=== PATIENT | female | born 1995 | race American Indian/Alaskan Native ===

== ENCOUNTER 2017-04-17 10:30 | Emergency (ER) | payer OTHER ==
[2017-04-17 10:53] VITALS: BP 116/71
[2017-04-17 11:19] LABS: HCG Qualitative,Urine Negative (Negative)
[2017-04-17 11:21] LABS: Bilirubin,Urine NEG (Negative); Blood,Urine NEG (Negative); Color,Urine Yellow (Yellow); Mucus,Urine 1+ /HPF; Protein,Urine <15 mg/dL mg/dL (Negative); Urobilinogen,Urine < 2.0 mg/dL (<2.0); WBC,Urine < 1.0 /HPF (0.0-6.0)
[2017-04-17] MEDS ORDERED: MOTRIN PO ONE (11:57)
--- NOTE | 2017-04-17 12:01 | Emergency Department Report ---
ED ENT HPI - General Chief complaint: Sore Throat Stated complaint: SORE THROAT/ABD PAIN Time Seen by Provider: 04/17/17 11:52 Source: patient Mode of arrival: Ambulatory Limitations: No Limitations - History of Present Illness Initial comments: 22-year-old -[place] female comes into the emergency room complaining of sore throat abdominal pain headache nasal congestion 2 days. Patient reports she has vomited about 3-4 times yesterday. She reports sinus drainage sinus congestion. She is tried sinus medicine yesterday. She's tried no pain medication at all. She has no past medical history, currently takes no medications on a daily basis, and no known drug allergies. MD complaint: sore throat -: days(s) (2) Location: throat Consistency: intermittent Improves with: none Worsens with: none - Related Data Previous Rx's Medication Instructions Recorded Last Taken Type Dexchlorpheniram/Phenylephrine 1 each PO Q6H #20 tab 04/17/17 Unknown Rx [Rymed Tablet] Ibuprofen 400 mg PO Q8H #15 tablet 04/17/17 Unknown Rx Allergies Allergy/AdvReac Type Severity Reaction Status Date / Time No Known Allergies Allergy Unverified 04/17/17 10:49 ED Dental HPI - General Chief complaint: Sore Throat Stated complaint: SORE THROAT/ABD PAIN Time Seen by Provider: 04/17/17 11:52 Source: patient Mode of arrival: Ambulatory Limitations: No Limitations - Related Data Previous Rx's Medication Instructions Recorded Last Taken Type Dexchlorpheniram/Phenylephrine 1 each PO Q6H #20 tab 04/17/17 Unknown Rx [Rymed Tablet] Ibuprofen 400 mg PO Q8H #15 tablet 04/17/17 Unknown Rx Allergies Allergy/AdvReac Type Severity Reaction Status Date / Time No Known Allergies Allergy Unverified 04/17/17 10:49 ED Review of Systems ROS: Stated complaint: SORE THROAT/ABD PAIN Other details as noted in HPI Constitutional: denies: chills, fever Eyes: denies: eye pain, eye discharge, vision change ENT: throat pain, congestion (nasal). denies: ear pain Respiratory: cough Cardiovascular: denies: chest pain, palpitations Endocrine: no symptoms reported Gastrointestinal: abdominal pain, vomiting. denies: nausea Genitourinary: denies: urgency, dysuria, discharge Musculoskeletal: denies: back pain, joint swelling, arthralgia Skin: denies: rash, lesions Neurological: denies: headache, weakness, paresthesias Psychiatric: denies: anxiety, depression Hematological/Lymphatic: denies: easy bleeding, easy bruising ED Past Medical Hx - Past Medical History Previous Medical History?: No - Surgical History Past Surgical History?: No - Social History Smoking Status: Never Smoker Substance Use Type: Non Opiate Pain, Other - Medications Home Medications: Home Medications Medication Instructions Recorded Confirmed Last Taken Type Dexchlorpheniram/Phenylephrine 1 each PO Q6H #20 tab 04/17/17 Unknown Rx [Rymed Tablet] Ibuprofen 400 mg PO Q8H #15 tablet 04/17/17 Unknown Rx ED Physical Exam - General Limitations: No Limitations General appearance: alert, in no apparent distress - Head Head exam: Present: atraumatic, normocephalic - Eye Eye exam: Present: normal appearance - ENT ENT exam: Present: mucous membranes moist - Expanded ENT Exam Expanded Throat exam: Positive: tonsillomegaly. Negative: tonsillar erythema, tonsillar exudate - Neck Neck exam: Present: normal inspection - Respiratory Respiratory exam: Present: normal lung sounds bilaterally. Absent: respiratory distress - Cardiovascular Cardiovascular Exam: Present: regular rate, normal rhythm. Absent: systolic murmur, diastolic murmur, rubs, gallop - GI/Abdominal GI/Abdominal exam: Present: soft, normal bowel sounds - Extremities Exam Extremities exam: Present: normal inspection - Back Exam Back exam: Present: normal inspection - Neurological Exam Neurological exam: Present: alert, oriented X3 - Psychiatric Psychiatric exam: Present: normal affect, normal mood - Skin Skin exam: Present: warm, dry, intact, normal color. Absent: rash ED Course Vital Signs 04/17/17 10:49 Temperature 99 F Pulse Rate 80 Respiratory 20 Rate Blood Pressure 116/71 O2 Sat by Pulse 97 Oximetry ED Medical Decision Making - Medical Decision Making Patient and evaluated with this provider fast track. Ibuprofen 400 mg ordered, rapid strep sent off urinalysis is completed by mouth trial is started. Critical care attestation.: If time is entered above; I have spent that time in minutes in the direct care of this critically ill patient, excluding procedure time. ED Disposition Clinical Impression: Viral syndrome Disposition: DC-01 TO HOME OR SELFCARE Is pt being admited?: No Does the pt Need Aspirin: No Condition: Stable Instructions: Viral Syndrome (ED) Additional Instructions: Take prescription as prescribed. Follow up with your PCP if symptoms get worst. Prescriptions: Dexchlorpheniram/Phenylephrine [Rymed Tablet] 1 each PO Q6H #20 tab Ibuprofen 400 mg PO Q8H #15 tablet Referrals: PRIMARY CARE, [Primary Care Provider] - 3-5 Days Forms: Work/School Release Form(ED), Accompanied Note
== END 2017-04-17 13:00 | disposition home or self-care (01) ==
LOC: ED 10:30
DX: B34.9 Viral infection, unspecified (principal)
CPT/HCPCS: 81001; 81025; 87116; 87430; 99283

== ENCOUNTER 2018-11-10 09:23 | Emergency (ER) | payer MEDICAID ==
[2018-11-10 09:29] VITALS: BP 138/68
[2018-11-10] MEDS ORDERED: SODIUM CHLORIDE 0.9% 1000 ML 1,000 ML IV ONE (10:11)
[2018-11-10] MEDS ORDERED: ACETAMINOPHEN 325 MG TAB PO ONE (10:14)
--- NOTE | 2018-11-10 10:26 | Emergency Department Report ---
ED Abdominal Pain HPI - General Chief Complaint: Abdominal Pain Stated Complaint: ABD PAIN/8WKS Time Seen by Provider: 11/10/18 10:03 Source: patient Mode of arrival: Ambulatory Limitations: No Limitations - History of Present Illness Initial Comments: Patient complains of right lower quadrant and pelvic pain which started when she woke up this morning. She denies any nausea, vomiting, diarrhea. She denies any chest pain, shortness of breath, vaginal bleeding or discharge. She denies any history of sexually transmitted and she also denies any past medical history MD Complaint: abdominal pain -: Sudden, This morning Location: RLQ Radiation: suprapubic Migration to: no migration Severity: severe Severity scale (0 -10): 7 Quality: sharp Consistency: constant Improves With: nothing Worsens With: nothing Associated Symptoms: denies other symptoms - Related Data LMP Date: 08/20/18 LMP (females 10-50): Previous Rx's Medication Instructions Recorded Last Taken Type Dexchlorpheniram/Phenylephrine 1 each PO Q6H #20 tab 04/17/17 Unknown Rx [Rymed Tablet] Ibuprofen 400 mg PO Q8H #15 tablet 04/17/17 Unknown Rx Acetaminophen [Tylenol] 650 mg PO Q8HR PRN #25 capsule 11/10/18 Unknown Rx Allergies Allergy/AdvReac Type Severity Reaction Status Date / Time No Known Allergies Allergy Unverified 04/17/17 10:49 ED Review of Systems ROS: Stated complaint: ABD PAIN/8WKS Other details as noted in HPI Comment: All other systems reviewed and negative Constitutional: denies: chills, fever Eyes: denies: eye pain, eye discharge, vision change ENT: denies: ear pain, throat pain Respiratory: denies: cough, shortness of breath, wheezing Cardiovascular: denies: chest pain, palpitations Endocrine: no symptoms reported Gastrointestinal: abdominal pain. denies: nausea, diarrhea Genitourinary: denies: urgency, dysuria, frequency, hematuria, discharge Musculoskeletal: denies: back pain, joint swelling, arthralgia Skin: denies: rash, lesions Neurological: denies: headache, weakness, paresthesias Psychiatric: denies: anxiety, depression Hematological/Lymphatic: denies: easy bleeding, easy bruising ED Past Medical Hx - Past Medical History Previous Medical History?: No - Surgical History Past Surgical History?: No - Social History Smoking Status: Never Smoker Substance Use Type: None - Medications Home Medications: Home Medications Medication Instructions Recorded Confirmed Last Taken Type Dexchlorpheniram/Phenylephrine 1 each PO Q6H #20 tab 04/17/17 Unknown Rx [Rymed Tablet] Ibuprofen 400 mg PO Q8H #15 tablet 04/17/17 Unknown Rx Acetaminophen [Tylenol] 650 mg PO Q8HR PRN #25 capsule 11/10/18 Unknown Rx ED Physical Exam - General Limitations: No Limitations General appearance: alert, in no apparent distress - Head Head exam: Present: atraumatic, normocephalic - Eye Eye exam: Present: normal appearance, PERRL - ENT ENT exam: Present: normal orophraynx, mucous membranes moist - Neck Neck exam: Present: normal inspection, full ROM. Absent: tenderness - Respiratory Respiratory exam: Present: normal lung sounds bilaterally. Absent: respiratory distress - Cardiovascular Cardiovascular Exam: Present: regular rate, normal rhythm. Absent: systolic murmur, diastolic murmur, rubs, gallop - GI/Abdominal GI/Abdominal exam: Present: soft, tenderness (right lower quadrant tenderness to palpation.), guarding, normal bowel sounds. Absent: distended, rebound - Rectal Rectal exam: Present: deferred - External exam: Present: normal external exam. Absent: erythema, swelling, lesions, lacerations, bleeding Speculum exam: Present: normal speculum exam. Absent: erythema, vaginal discharge, cervical discharge, vaginal bleeding, foreign body, tissue, laceration Bi-manual exam: Present: adnexal tenderness (bilateral adnexal tenderness more on the right than the left.), other (Business Analytics Manager was Ms Mukund RN.). Absent: cervical motion tendernes, adnexal mass, uterine enlargement, uterine tenderness - Extremities Exam Extremities exam: Present: normal inspection, full ROM, normal capillary refill - Back Exam Back exam: Present: normal inspection, full ROM. Absent: CVA tenderness (R), CVA tenderness (L) - Neurological Exam Neurological exam: Present: alert, oriented X3, CN II-XII intact - Psychiatric Psychiatric exam: Present: normal affect, normal mood - Skin Skin exam: Present: warm, dry, intact, normal color. Absent: rash ED Course Vital Signs 11/10/18 09:28 Temperature 98.3 F Pulse Rate 76 Respiratory 18 Rate Blood Pressure 138/68 [Right] O2 Sat by Pulse 100 Oximetry - Reevaluation(s) Reevaluation #1: 11/10/18 14:40 Patient is looking better and feeling much better. She denies any abdominal pain currently. I discussed with her lab results and ultrasound results. ED Medical Decision Making - Lab Data Result diagrams: 11/10/18 10:24 11/10/18 10:24 Lab Results 11/10/18 11/10/18 11/10/18 Range/Units 10:24 10:24 10:24 WBC 3.2 L (4.5-11.0) K/mm3 RBC 4.23 (3.65-5.03) M/mm3 Hgb 12.0 (10.1-14.3) gm/dl Hct 36.3 (30.3-42.9) % MCV 86 (79-97) fl MCH 28 (28-32) pg MCHC 33 (30-34) % RDW 12.4 L (13.2-15.2) % Plt Count 203 (140-440) K/mm3 Lymph % (Auto) 34.5 (13.4-35.0) % Vance % (Auto) 9.7 H (0.0-7.3) % Eos % (Auto) 1.4 (0.0-4.3) % Baso % (Auto) 0.7 (0.0-1.8) % Lymph # 1.1 L (1.2-5.4) K/mm3 Vance # 0.3 (0.0-0.8) K/mm3 Eos # 0.0 (0.0-0.4) K/mm3 Baso # 0.0 (0.0-0.1) K/mm3 Seg Neutrophils % 53.7 (40.0-70.0) % Seg Neutrophils # 1.7 L (1.8-7.7) K/mm3 PT 12.9 (12.2-14.9) Sec. INR 1.00 (0.87-1.13) APTT 30.0 (24.2-36.6) Sec. Sodium (137-145) mmol/L Potassium (3.6-5.0) mmol/L Chloride (98-107) mmol/L Carbon Dioxide (22-30) mmol/L Anion Gap mmol/L BUN (7-17) mg/dL Creatinine (0.7-1.2) mg/dL Estimated GFR ml/min BUN/Creatinine Ratio % Glucose (65-100) mg/dL Calcium (8.4-10.2) mg/dL Total Bilirubin (0.1-1.2) mg/dL AST (5-40) units/L ALT (7-56) units/L Alkaline Phosphatase (35-129) units/L Total Protein (6.3-8.2) g/dL Albumin (3.9-5) g/dL Albumin/Globulin Ratio % Lipase 17 (13-60) units/L HCG, Quant (0-4) mIU/mL Urine Color (Yellow) Urine Turbidity (Clear) Urine pH (5.0-7.0) Ur Specific [place] (1.003-1.030) Urine Protein (Negative) mg/dL Urine Glucose (UA) (Negative) mg/dL Urine Ketones (Negative) mg/dL Urine Blood (Negative) Urine Nitrite (Negative) Urine Bilirubin (Negative) Urine Urobilinogen (<2.0) mg/dL Ur Leukocyte Esterase (Negative) Urine WBC (Auto) (0.0-6.0) /HPF Urine RBC (Auto) (0.0-6.0) /HPF U Epithel Cells (Auto) (0-13.0) /HPF Urine Bacteria (Auto) (Negative) /HPF Amorphous Crystals Urine HCG, Qual (Negative) Blood Type 11/10/18 11/10/18 11/10/18 Range/Units 10:24 10:24 10:24 WBC (4.5-11.0) K/mm3 RBC (3.65-5.03) M/mm3 Hgb (10.1-14.3) gm/dl Hct (30.3-42.9) % MCV (79-97) fl MCH (28-32) pg MCHC (30-34) % RDW (13.2-15.2) % Plt Count (140-440) K/mm3 Lymph % (Auto) (13.4-35.0) % Vance % (Auto) (0.0-7.3) % Eos % (Auto) (0.0-4.3) % Baso % (Auto) (0.0-1.8) % Lymph # (1.2-5.4) K/mm3 Vance # (0.0-0.8) K/mm3 Eos # (0.0-0.4) K/mm3 Baso # (0.0-0.1) K/mm3 Seg Neutrophils % (40.0-70.0) % Seg Neutrophils # (1.8-7.7) K/mm3 PT (12.2-14.9) Sec. INR (0.87-1.13) APTT (24.2-36.6) Sec. Sodium 135 L (137-145) mmol/L Potassium 3.7 (3.6-5.0) mmol/L Chloride 100.6 (98-107) mmol/L Carbon Dioxide 20 L (22-30) mmol/L Anion Gap 18 mmol/L BUN 4 L (7-17) mg/dL Creatinine 0.5 L (0.7-1.2) mg/dL Estimated GFR > 60 ml/min BUN/Creatinine Ratio 8 % Glucose 82 (65-100) mg/dL Calcium 9.7 (8.4-10.2) mg/dL Total Bilirubin 0.30 (0.1-1.2) mg/dL AST 17 (5-40) units/L ALT 9 (7-56) units/L Alkaline Phosphatase 51 (35-129) units/L Total Protein 7.7 (6.3-8.2) g/dL Albumin 4.3 (3.9-5) g/dL Albumin/Globulin Ratio 1.3 % Lipase (13-60) units/L HCG, Quant 98658 H (0-4) mIU/mL Urine Color (Yellow) Urine Turbidity (Clear) Urine pH (5.0-7.0) Ur Specific [place] (1.003-1.030) Urine Protein (Negative) mg/dL Urine Glucose (UA) (Negative) mg/dL Urine Ketones (Negative) mg/dL Urine Blood (Negative) Urine Nitrite (Negative) Urine Bilirubin (Negative) Urine Urobilinogen (<2.0) mg/dL Ur Leukocyte Esterase (Negative) Urine WBC (Auto) (0.0-6.0) /HPF Urine RBC (Auto) (0.0-6.0) /HPF U Epithel Cells (Auto) (0-13.0) /HPF Urine Bacteria (Auto) (Negative) /HPF Amorphous Crystals Urine HCG, Qual (Negative) Blood Type O POSITIVE 11/10/18 Range/Units Unknown WBC (4.5-11.0) K/mm3 RBC (3.65-5.03) M/mm3 Hgb (10.1-14.3) gm/dl Hct (30.3-42.9) % MCV (79-97) fl MCH (28-32) pg MCHC (30-34) % RDW (13.2-15.2) % Plt Count (140-440) K/mm3 Lymph % (Auto) (13.4-35.0) % Vance % (Auto) (0.0-7.3) % Eos % (Auto) (0.0-4.3) % Baso % (Auto) (0.0-1.8) % Lymph # (1.2-5.4) K/mm3 Vance # (0.0-0.8) K/mm3 Eos # (0.0-0.4) K/mm3 Baso # (0.0-0.1) K/mm3 Seg Neutrophils % (40.0-70.0) % Seg Neutrophils # (1.8-7.7) K/mm3 PT (12.2-14.9) Sec. INR (0.87-1.13) APTT (24.2-36.6) Sec. Sodium (137-145) mmol/L Potassium (3.6-5.0) mmol/L Chloride (98-107) mmol/L Carbon Dioxide (22-30) mmol/L Anion Gap mmol/L BUN (7-17) mg/dL Creatinine (0.7-1.2) mg/dL Estimated GFR ml/min BUN/Creatinine Ratio % Glucose (65-100) mg/dL Calcium (8.4-10.2) mg/dL Total Bilirubin (0.1-1.2) mg/dL AST (5-40) units/L ALT (7-56) units/L Alkaline Phosphatase (35-129) units/L Total Protein (6.3-8.2) g/dL Albumin (3.9-5) g/dL Albumin/Globulin Ratio % Lipase (13-60) units/L HCG, Quant (0-4) mIU/mL Urine Color Yellow (Yellow) Urine Turbidity Cloudy (Clear) Urine pH 8.0 H (5.0-7.0) Ur Specific [place] 1.010 (1.003-1.030) Urine Protein <15 mg/dl (Negative) mg/dL Urine Glucose (UA) Neg (Negative) mg/dL Urine Ketones Neg (Negative) mg/dL Urine Blood Neg (Negative) Urine Nitrite Neg (Negative) Urine Bilirubin Neg (Negative) Urine Urobilinogen < 2.0 (<2.0) mg/dL Ur Leukocyte Esterase Neg (Negative) Urine WBC (Auto) 2.0 (0.0-6.0) /HPF Urine RBC (Auto) 1.0 (0.0-6.0) /HPF U Epithel Cells (Auto) < 1.0 (0-13.0) /HPF Urine Bacteria (Auto) 1+ (Negative) /HPF Amorphous Crystals Few Urine HCG, Qual Positive A (Negative) Blood Type - Radiology Data Radiology results: report reviewed Transvaginal ultrasound showed early IUP. - Medical Decision Making Pelvic early . Patients labs results are unremarkable. Ultrasound showed early IUP. Will discharge home to follow up with Dr Juan Ludwig (OBGYN) tomorrow. Critical care attestation.: If time is entered above; I have spent that time in minutes in the direct care of this critically ill patient, excluding procedure time. ED Disposition Clinical Impression: Abdominal pain during intrauterine , Early stage of Disposition: TO HOME OR SELFCARE Is pt being admited?: No Does the pt Need Aspirin: No Condition: Stable Instructions: (ED), Abdominal Pain (ED) Additional Instructions: Please follow up with the archives specialist and surveyor oil well directional Dr. Juan Ludwig tomorrow morning. Return to the emergency room if your condition worsens. Prescriptions: Acetaminophen [Tylenol] 650 mg PO Q8HR PRN #25 capsule PRN Reason: Pain , Severe (7-10) Referrals: PRIMARY CARE, [Primary Care Provider] - 3-5 Days JUAN LUDWIG MD [Staff Physician] - 3-5 Days Forms: Work/School Release Form(ED) Time of Disposition: 14:47
[2018-11-10 10:52] LABS: Amorphous Crystals,Urine Few; Bacteria,Urine 1+ /HPF (Negative); Bilirubin,Urine NEG (Negative); Blood,Urine NEG (Negative); Color,Urine Yellow (Yellow); Protein,Urine <15 mg/dL mg/dL (Negative); Urobilinogen,Urine < 2.0 mg/dL (<2.0)
[2018-11-10 10:55] LABS: Basophils % (Auto) 0.7 % (0.0-1.8); Eosinophils % (Auto) 1.4 % (0.0-4.3); Hematocrit 36.3 % (30.3-42.9); Lymphocytes # (Auto) 1.1 K/mm3 (1.2-5.4); Lymphocytes % (Auto) 34.5 % (13.4-35.0); Mean Corpuscular HGB Conc 33 % (30-34); Mean Corpuscular Volume 86 fl (79-97); Monocytes # (Auto) 0.3 K/mm3 (0.0-0.8); Monocytes % (Auto) 9.7 % (0.0-7.3); Platelet Count 203 K/mm3 (140-440); Red Blood Count 4.23 M/mm3 (3.65-5.03); Red Cell Distribution Width 12.4 % (13.2-15.2)
[2018-11-10 11:00] LABS: HCG Qualitative,Urine Positive (Negative)
[2018-11-10 12:20] LABS: Alanine Aminotransferase 9 units/L (7-56); Albumin 4.3 g/dL (3.9-5); BUN/Creatinine Ratio 8; Blood Urea Nitrogen 4 mg/dL (7-17); Calcium 9.7 mg/dL (8.4-10.2); Hemolysis Index 11
--- NOTE | 2018-11-10 13:58 | Ultrasound Report ---
ULTRASOUND OBSTETRIC INDICATION / CLINICAL INFORMATION: Pelvic pain, . TECHNIQUE: Transabdominal and Transvaginal. Duplex ultrasound with spectral technique was also performed through both ovaries COMPARISON: None available. FINDINGS: GESTATIONAL SAC: Well-defined oval shape and intrauterine in location. YOLK SAC: No significant abnormality. EMBRYO/FETUS: No significant abnormality. - [place] Length = 1.93 cm = 8 weeks, 3 day(s). - Heart Rate, beats per minute (if present) = 180 ADNEXA: No significant abnormality. FREE FLUID: None. ADDITIONAL FINDINGS: Color Doppler and spectral waveforms are seen within both ovaries without eviden ce for torsion. IMPRESSION: 1. Single, living intrauterine with estimated sonographic age of 8 weeks, 3 day(s). Signer Name: Wolfgang Marley MD Signed: 11/10/2018 1:53 PM Workstation Name: [id number]
== END 2018-11-10 15:18 | disposition home or self-care (01) ==
LOC: ED 09:23
DX: O00.01 Abdominal pregnancy with intrauterine pregnancy (principal); Z3A.01 Less than 8 weeks gestation of pregnancy; Z79.899 Other long term (current) drug therapy
CPT/HCPCS: 36415; 76801; 80053; 81001; 81025; 83690; 84702; 85025; 85610; 85730; 86900; 86901; 87086; 87210; 87591; 99285; J7030

== ENCOUNTER 2019-05-31 01:19 | Outpatient (CLI) | payer MEDICAID ==
--- NOTE | 2019-05-31 03:31 | Ultrasound Report ---
LIMITED OBSTETRICAL ULTRASOUND INDICATION: Term , light vaginal bleeding COMPARISON: None TECHNIQUE: Transabdominal FINDINGS: Intrauterine is noted. Fetus is in a cephalic position. Placenta is fundal and le ft-sided and free of the internal cervical os. No obvious placental abnormalities are seen with no ev idence of abruption. Amniotic fluid volume qualitatively appears within normal limits and MIKE was mar culated at 9.5 cm which is within normal limits. cardiac activity was reported by the technolog ist at 134 bpm though I do not have a confirmatory image currently available. Dating was not performe d. Anatomic survey was not performed. IMPRESSION: No abnormalities are seen in a limited study Signer Name: Hugh Garcia MD Signed: 05/31/2019 3:27 AM Workstation Name: [id number]
[2019-05-31 03:51] LABS: Bilirubin,Urine NEG (Negative); Blood,Urine SM (Negative); Color,Urine Yellow (Yellow); Mucus,Urine FEW /HPF; Protein,Urine <15 mg/dL mg/dL (Negative); Urobilinogen,Urine < 2.0 mg/dL (<2.0)
--- NOTE | 2019-05-31 19:38 | Ultrasound Report ---
ULTRASOUND BIOPHYSICAL PROFILE INDICATION: light bleeding. COMPARISON: None available. FINDINGS: BREATHING MOVEMENT = 2 GROSS BODY MOVEMENT = 2 TONE = 2 QUALITATIVE AMNIOTIC FLUID VOLUME = 2 TOTAL BIOPHYSICAL SCORE = 09/12 AMNIOTIC FLUID INDEX (cm) = 9.5 PRESENTATION: Cephalic. HEART RATE (beats per minute): 134 IMPRESSION: 1. biophysical profile = 09/12 Signer Name: Wolfgang Marley MD Signed: 05/31/2019 7:34 PM Workstation Name: [id number]
== END 2019-05-31 04:15 | disposition home or self-care (01) ==
LOC: TRG 01:19 → APU 01:25 → TRG 04:15
PROVIDERS: ATTEND Obstetrics & Gynecology
DX: O46.8X3 Other antepartum hemorrhage, third trimester (principal); Z3A.38 38 weeks gestation of pregnancy
CPT/HCPCS: 59025; 76815; 76819; 81001

== ENCOUNTER 2019-06-01 16:16 | Outpatient (CLI) | payer MEDICAID ==
[2019-06-01 16:49] VITALS: BP 137/87
[2019-06-01] MEDS ORDERED: hydrOXYzine PAMOATE 25 MG CAP PO ONE (18:53)
[2019-06-01] MEDS ORDERED: ACETAMINOPHEN W/CODEINE 300-30 MG TAB PO ONE (18:53)
== END 2019-06-01 19:23 | disposition home or self-care (01) ==
LOC: TRG 16:16 → APU 16:20 → TRG 19:23
PROVIDERS: ATTEND Obstetrics & Gynecology
DX: O47.1 False labor at or after 37 completed weeks of gestation (principal); Z3A.37 37 weeks gestation of pregnancy
CPT/HCPCS: 59025

== ENCOUNTER 2019-09-30 18:20 | Emergency (ER) | payer MEDICAID ==
--- NOTE | 2019-09-30 19:06 | Event Note ---
ED Screening Note Date of service: 09/30/19 Time: 19:05 ED Screening Note: Heavy vaginal bleeding that started last night. no pain, had a baby 3 months ago. LMP 2 weeks ago. She reports it is heavier than her normal period flow. GENERAL APPEARANCE: Well-developed, well-nourished, no acute distress HEENT: Normocephalic and atraumatic. No scleral icterus. Pupils are equal, round, and reactive to light and accommodation. No conjunctival injection is noted. Oropharynx is clear. Mouth revealed good dentition, no lesions. Tympanic membranes are clear. NECK: Supple. Trachea is midline. No evidence of thyroid enlargement. No lymphadenopathy or tenderness. CHEST: Symmetric. Nontender to palpation. LUNGS: Breath sounds are equal and clear bilaterally. No wheezes, rhonchi, or rales. HEART: Regular rate and rhythm with normal S1 and S2. No murmurs, gallops, or rubs. BREASTS: Symmetrical. No skin or nipple retractions. No nipple discharges or masses. ABDOMEN: Soft, flat, and benign. No mass, tenderness, guarding, or rebound. No organomegaly or hernia. Bowel sounds are present. No CVA tenderness or flank mass. GENITOURINARY: Deferred RECTAL: Deferred EXTREMITIES: No cyanosis, clubbing, or edema. No lower extreme edema, negative Homans sign bilaterally NEUROLOGIC: No focal sensory or motor deficits are noted. Gait is normal. Cranial nerves II through XII are intact. Deep tendon reflexes are intact. PSYCHIATRIC: The patient is awake, alert, and oriented x3. Recent and remote memory is intact. Appropriate mood and affect. SKIN: Warm, dry, and well perfused. Good turgor. No lesions, nodules or rashes are noted. No onychomycosis. LYMPHATICS: No cervical, axillary, or groin adenopathy is noted. This initial assessment/diagnostic orders/clinical plan/treatment(s) is/are subject to change based on patients health status, clinical progression and re- assessment by fellow clinical providers in the ED. Further treatment and workup at subsequent clinical providers discretion. Patient/guardian urged not to elope from the ED as their condition may be serious if not clinically assessed and managed. Initial orders include: UA, urine hcg
[2019-09-30 19:24] LABS: HCG Qualitative,Urine Negative (Negative)
[2019-09-30 19:25] LABS: Bilirubin,Urine NEG (Negative); Blood,Urine LG (Negative); Color,Urine Yellow (Yellow); Mucus,Urine 3+ /HPF
--- NOTE | 2019-09-30 21:31 | Emergency Department Report ---
ED Female HPI - General Chief complaint: Urogenital-Female Stated complaint: BLEEDING Time Seen by Provider: 09/30/19 20:00 Source: patient Mode of arrival: Ambulatory Limitations: No Limitations - History of Present Illness Initial comments: 24-year-old [place] female sent emergency department complaining of painless bleeding for the last 1 to 2 days going through 6 pads since yesterday. States that she had a period 2 weeks ago and appears abnormally on schedule and she is never experienced any menses or vaginal bleeding between menstrual periods. Ports no fever, chills, sweats no nausea, no vomiting, no chest pain, no palpitation no hematuria no dysuria. Reports having a vaginal delivery about 3 to 4 months ago reports taking no control or hormones to exacerbate this issue MD Complaint: vaginal bleeding Improves with: none Worsens with: none Are you Now?: No Associated Symptoms: vaginal bleeding - Related Data Previous Rx's Medication Instructions Recorded Last Taken Type Dexchlorpheniram/Phenylephrine 1 each PO Q6H #20 tab 04/17/17 Unknown Rx [Rymed Tablet] Ibuprofen 400 mg PO Q8H #15 tablet 04/17/17 Unknown Rx Acetaminophen [Tylenol] 650 mg PO Q8HR PRN #25 capsule 11/10/18 Unknown Rx HYDROcodone/APAP 5-325 [[place] 1 each PO Q6HR PRN #20 tablet 06/08/19 Unknown Rx 5/325] Ibuprofen [Motrin] 800 mg PO Q8HR PRN #60 tablet 06/08/19 Unknown Rx Allergies Allergy/AdvReac Type Severity Reaction Status Date / Time No Known Allergies Allergy Unverified 06/06/19 16:53 ED Review of Systems ROS: Stated complaint: BLEEDING Other details as noted in HPI Comment: All other systems reviewed and negative ED Past Medical Hx - Past Medical History Hx Hypertension: No Hx Diabetes: No Hx Deep Vein Thrombosis: No Hx Renal Disease: No Hx Sickle Cell Disease: No Hx Seizures: No Hx Asthma: No Hx HIV: No - Social History Smoking Status: Current Every Day Smoker - Medications Home Medications: Home Medications Medication Instructions Recorded Confirmed Last Taken Type Dexchlorpheniram/Phenylephrine 1 each PO Q6H #20 tab 04/17/17 06/07/19 Unknown Rx [Rymed Tablet] Ibuprofen 400 mg PO Q8H #15 tablet 04/17/17 06/07/19 Unknown Rx Acetaminophen [Tylenol] 650 mg PO Q8HR PRN #25 capsule 11/10/18 06/07/19 Unknown Rx HYDROcodone/APAP 5-325 [[place] 1 each PO Q6HR PRN #20 tablet 06/08/19 Unknown Rx 5/325] Ibuprofen [Motrin] 800 mg PO Q8HR PRN #60 tablet 06/08/19 Unknown Rx ED Physical Exam - General Limitations: No Limitations General appearance: alert, in no apparent distress - Head Head exam: Present: atraumatic, normocephalic - Eye Eye exam: Present: normal appearance, PERRL, EOMI - ENT ENT exam: Present: mucous membranes moist - Neck Neck exam: Present: normal inspection - Respiratory Respiratory exam: Present: normal lung sounds bilaterally. Absent: respiratory distress - Cardiovascular Cardiovascular Exam: Present: regular rate, normal rhythm. Absent: systolic murmur, diastolic murmur, rubs, gallop - GI/Abdominal GI/Abdominal exam: Present: soft, normal bowel sounds. Absent: tenderness, guarding - Extremities Exam Extremities exam: Present: normal inspection - Back Exam Back exam: Present: normal inspection - Neurological Exam Neurological exam: Present: alert, oriented X3 - Psychiatric Psychiatric exam: Present: normal affect, normal mood - Skin Skin exam: Present: warm, dry, intact, normal color. Absent: rash ED Course Vital Signs 09/30/19 09/30/19 09/30/19 18:34 18:36 20:32 Temperature 97.9 F 98.7 F Pulse Rate 66 58 L Respiratory 19 14 Rate Blood Pressure 130/65 Blood Pressure 111/75 [Left] O2 Sat by Pulse 100 100 Oximetry ED Medical Decision Making - Lab Data Lab Results 09/30/19 Range/Units 18:47 Urine Color Yellow (Yellow) Urine Turbidity Clear (Clear) Urine pH 7.0 (5.0-7.0) Ur Specific [place] 1.025 (1.003-1.030) Urine Protein 30 mg/dl (Negative) mg/dL Urine Glucose (UA) Neg (Negative) mg/dL Urine Ketones Neg (Negative) mg/dL Urine Blood Lg (Negative) Urine Nitrite Neg (Negative) Ur Reducing Substances Not Reportable Urine Bilirubin Neg (Negative) Urine Ictotest Not Reportable Urine Urobilinogen 2.0 (<2.0) mg/dL Ur Leukocyte Esterase Neg (Negative) Urine WBC (Auto) 1.0 (0.0-6.0) /HPF Urine RBC (Auto) 173.0 (0.0-6.0) /HPF U Epithel Cells (Auto) 6.0 (0-13.0) /HPF Urine Mucus 3+ /HPF Urine HCG, Qual Negative (Negative) - Radiology Data Radiology results: report reviewed [facility] [address] [place] [address] Ultrasound Report Signed Patient: ABRAHAM TO MR#: [id number] : 1995 Acct:[id number] Age/Sex: 24 / F ADM Date: 09/30/19 Loc: ED Attending Dr: Ordering Physician: JOSH KUNZ Date of Service: 09/30/19 Procedure(s): US pelvic complete Accession Number(s): [id number] cc: JOSH KUNZ US pelvic complete INDICATION / CLINICAL INFORMATION: vaginal bleeding painless. COMPARISON: None available. FINDINGS: The uterus is normal in size and position. Endometrial canal measures 9 mm. The ovaries are normal in size and appearance. No free fluid or mass is seen. IMPRESSION: Negative pelvic ultrasound Signer Name: Navid Worthy MD FACR Signed: 09/30/2019 9:57 PM Workstation Name: [id number] Transcribed By: MS Dictated By: Navid Worthy MD Electronically Authenticated By: Navid Worthy MD Signed Date/Time: 09/30/192156 DD/ 55 TD/TT: - Medical Decision Making Female presents emergency department with over [2] days of episodic vaginal bleeding most likely of a nonemergent etiology. Based on the history, exa mination, the ED work-up patient's presentation not consistent with an ectopic , molar , life threatening coagulopathy, serious bacterial infection, central process or other emergency. Patient's bleeding is most likely secondary to, fibroids, or the nonemergent cause of abnormal uterine bleeding. No vaginal tears were appreciated on examination Disposition: We will discharge home with return precautions and instructions for prompt [facility] follow-up Critical care attestation.: If time is entered above; I have spent that time in minutes in the direct care of this critically ill patient, excluding procedure time. ED Disposition Clinical Impression: Menses, irregular Disposition: DC-01 TO HOME OR SELFCARE Is pt being admited?: No Does the pt Need Aspirin: No Condition: Stable Instructions: Menstruation (ED), Menorrhagia (ED) Referrals: PRIMARY CARE, [Primary Care Provider] - 3-5 Days [facility] [Provider Group] - 3-5 Days
--- NOTE | 2019-09-30 22:01 | Ultrasound Report ---
US pelvic complete INDICATION / CLINICAL INFORMATION: vaginal bleeding painless. COMPARISON: None available. FINDINGS: The uterus is normal in size and position. Endometrial canal measures 9 mm. The ovaries are normal in size and appearance. No free fluid or mass is seen. IMPRESSION: Negative pelvic ultrasound Signer Name: Navid Worthy MD FACR Signed: 09/30/2019 9:57 PM Workstation Name: [email or web address]
[2019-09-30 22:08] VITALS: BP 111/75
== END 2019-09-30 22:11 | disposition home or self-care (01) ==
LOC: ED 18:20
DX: N92.5 Other specified irregular menstruation (principal); F17.200 Nicotine dependence, unspecified, uncomplicated; Z79.899 Other long term (current) drug therapy
CPT/HCPCS: 76856; 81001; 81025

== ENCOUNTER 2020-02-02 16:56 | Emergency (ER) | payer SELFPAY ==
[2020-02-02 18:05] VITALS: BP 102/70
== END 2020-02-02 20:03 | disposition left against medical advice (07) ==
LOC: ED 16:56
DX: N39.0 Urinary tract infection, site not specified (principal); Z53.21 Procedure and treatment not carried out due to patient leaving prior to being seen by health care provider

== ENCOUNTER 2021-08-16 05:32 | Emergency (ER) | payer SELFPAY ==
--- NOTE | 2021-08-16 06:53 | Emergency Department Report ---
ED General Adult HPI - General Stated complaint: MH Time Seen by Provider: 08/16/21 06:37 - History of Present Illness Initial comments: Patient presents with the severe anxiety patient denies having any suicidal or homicidal ideation. She was given Haldol and Ativan by EMS to be brought in for an evaluation she is now on more alert and awake. Patient denies have any pain she states that she was very anxious and had a lot of stress yesterday however she feels better. - Related Data Previous Rx's Medication Instructions Recorded Last Taken Type Dexchlorpheniram/Phenylephrine 1 each PO Q6H #20 tab 04/17/17 Unknown Rx [Rymed Tablet] Ibuprofen 400 mg PO Q8H #15 tablet 04/17/17 Unknown Rx Acetaminophen [Tylenol] 650 mg PO Q8HR PRN #25 capsule 11/10/18 Unknown Rx HYDROcodone/APAP 5-325 [[place] 1 each PO Q6HR PRN #20 tablet 06/08/19 Unknown Rx 5/325] Ibuprofen [Motrin] 800 mg PO Q8HR PRN #60 tablet 06/08/19 Unknown Rx Allergies Allergy/AdvReac Type Severity Reaction Status Date / Time No Known Allergies Allergy Unverified 06/06/19 16:53 ED Review of Systems ROS: Stated complaint: MH Other details as noted in HPI Constitutional: denies: chills, fever Eyes: denies: eye pain, eye discharge, vision change ENT: denies: ear pain, throat pain Respiratory: denies: cough, shortness of breath, wheezing Cardiovascular: denies: chest pain, palpitations Endocrine: no symptoms reported Gastrointestinal: denies: abdominal pain, nausea, diarrhea Genitourinary: denies: urgency, dysuria, discharge Musculoskeletal: denies: back pain, joint swelling, arthralgia Skin: denies: rash, lesions Neurological: denies: headache, weakness, paresthesias Psychiatric: anxiety. denies: depression Hematological/Lymphatic: denies: easy bleeding, easy bruising ED Past Medical Hx - Past Medical History Hx Hypertension: No Hx Diabetes: No Hx Deep Vein Thrombosis: No Hx Renal Disease: No Hx Sickle Cell Disease: No Hx Seizures: No Hx Asthma: No Hx HIV: No - Social History Smoking Status: Current Every Day Smoker - Medications Home Medications: Home Medications Medication Instructions Recorded Confirmed Last Taken Type Dexchlorpheniram/Phenylephrine 1 each PO Q6H #20 tab 04/17/17 06/07/19 Unknown Rx [Rymed Tablet] Ibuprofen 400 mg PO Q8H #15 tablet 04/17/17 06/07/19 Unknown Rx Acetaminophen [Tylenol] 650 mg PO Q8HR PRN #25 capsule 11/10/18 06/07/19 Unknown Rx HYDROcodone/APAP 5-325 [[place] 1 each PO Q6HR PRN #20 tablet 06/08/19 Unknown Rx 5/325] Ibuprofen [Motrin] 800 mg PO Q8HR PRN #60 tablet 06/08/19 Unknown Rx ED Physical Exam - General General appearance: alert, in no apparent distress - Head Head exam: Present: atraumatic, normocephalic - Eye Eye exam: Present: normal appearance - ENT ENT exam: Present: mucous membranes moist - Neck Neck exam: Present: normal inspection - Respiratory Respiratory exam: Present: normal lung sounds bilaterally. Absent: respiratory distress - Cardiovascular Cardiovascular Exam: Present: regular rate, normal rhythm. Absent: systolic murmur, diastolic murmur, rubs, gallop - GI/Abdominal GI/Abdominal exam: Present: soft, normal bowel sounds - Extremities Exam Extremities exam: Present: normal inspection - Back Exam Back exam: Present: normal inspection - Neurological Exam Neurological exam: Present: alert, oriented X3 - Psychiatric Psychiatric exam: Present: normal affect, normal mood - Skin Skin exam: Present: warm, dry, intact, normal color. Absent: rash ED Course Vital Signs 08/16/21 08/16/21 08/16/21 06:12 06:15 06:42 Temperature 97.8 F Pulse Rate 94 H Respiratory Rate Blood Pressure 91/42 91/42 Blood Pressure [Left] O2 Sat by Pulse 97 96 96 Oximetry 08/16/21 08/16/21 08/16/21 07:15 07:31 07:45 Temperature Pulse Rate 87 88 82 Respiratory 17 20 19 Rate Blood Pressure 91/39 91/47 91/47 Blood Pressure [Left] O2 Sat by Pulse 98 97 96 Oximetry 08/16/21 08/16/21 08/16/21 08:01 08:15 08:31 Temperature Pulse Rate 88 89 89 Respiratory 17 18 19 Rate Blood Pressure 100/53 100/53 94/55 Blood Pressure [Left] O2 Sat by Pulse 99 97 97 Oximetry 08/16/21 08/16/2108/16/22 08:45 09:15 09:21 Temperature Pulse Rate 85 75 Respiratory 12 18 18 Rate Blood Pressure 94/55 103/73 Blood Pressure [Left] O2 Sat by Pulse 19 L Oximetry 08/16/21 08/16/21 08/16/21 09:31 10:01 10:15 Temperature Pulse Rate 77 73 70 Respiratory 19 17 20 Rate Blood Pressure 101/67 96/57 98/61 Blood Pressure [Left] O2 Sat by Pulse 97 97 100 Oximetry 08/16/21 08/16/21 08/16/21 10:31 10:34 10:45 Temperature Pulse Rate 70 82 69 Respiratory 17 18 19 Rate Blood Pressure 99/61 99/61 Blood Pressure 99/61 [Left] O2 Sat by Pulse 99 99 100 Oximetry 08/16/21 08/16/21 08/16/21 11:01 11:15 11:31 Temperature Pulse Rate 88 71 71 Respiratory 21 20 21 Rate Blood Pressure 99/67 99/61 111/75 Blood Pressure [Left] O2 Sat by Pulse 100 100 100 Oximetry 08/16/21 08/16/21 08/16/21 11:45 12:01 12:15 Temperature Pulse Rate 69 78 76 Respiratory 20 21 21 Rate Blood Pressure 111/75 111/72 111/72 Blood Pressure [Left] O2 Sat by Pulse 100 100 100 Oximetry ED Medical Decision Making - Lab Data Result diagrams: 08/16/21 07:07 08/16/21 07:07 Lab Results 08/16/21 08/16/21 08/16/21 Range/Units 07:07 07:07 09:39 WBC 8.8 (4.5-11.0) K/mm3 RBC 4.47 (3.65-5.03) M/mm3 Hgb 12.7 (10.1-14.3) gm/dl Hct 38.1 (30.3-42.9) % MCV 85 (79-97) fl MCH 28 (28-32) pg MCHC 33 (30-34) % RDW 14.8 (13.2-15.2) % Plt Count 198 (140-440) K/mm3 Lymph % (Auto) 18.8 (13.4-35.0) % [place] % (Auto) 8.8 H (0.0-7.3) % Eos % (Auto) 0.2 (0.0-4.3) % Baso % (Auto) 0.4 (0.0-1.8) % Lymph # (Auto) 1.7 (1.2-5.4) K/mm3 [place] # (Auto) 0.8 (0.0-0.8) K/mm3 Eos # (Auto) 0.0 (0.0-0.4) K/mm3 Baso # (Auto) 0.0 (0.0-0.1) K/mm3 Seg Neutrophils % 71.8 H (40.0-70.0) % Seg Neutrophils # 6.3 (1.8-7.7) K/mm3 Sodium 138 (137-145) mmol/L Potassium 3.8 (3.6-5.0) mmol/L Chloride 102.0 (98-107) mmol/L Carbon Dioxide 22 (22-30) mmol/L Anion Gap 18 mmol/L BUN 11 (7-17) mg/dL Creatinine 0.5 L (0.6-1.2) mg/dL Estimated GFR > 60 ml/min BUN/Creatinine Ratio 22 % Glucose 90 (65-100) mg/dL Calcium 9.4 (8.4-10.2) mg/dL TSH 1.150 (0.270-4.200) mlU/mL Free T4 1.33 (0.76-1.46) ng/dL Urine Color (Yellow) Urine Turbidity (Clear) Urine pH (5.0-7.0) Ur Specific [place] (1.003-1.030) Urine Protein (Negative) mg/dL Urine Glucose (UA) (Negative) mg/dL Urine Ketones (Negative) mg/dL Urine Blood (Negative) Urine Nitrite (Negative) Urine Bilirubin (Negative) Urine Urobilinogen (<2.0) mg/dL Ur Leukocyte Esterase (Negative) Urine WBC (Auto) (0.0-6.0) /HPF Urine RBC (Auto) (0.0-6.0) /HPF U Epithel Cells (Auto) (0-13.0) /HPF Urine Mucus /HPF Urine HCG, Qual (Negative) Urine Opiates Screen Urine Methadone Screen Ur Barbiturates Screen Ur Phencyclidine Scrn Ur Amphetamines Screen U Benzodiazepines Scrn Urine Cocaine Screen U Marijuana (THC) Screen Drugs of Abuse Note Plasma/Serum Alcohol (0-0.07) % 08/16/21 08/16/21 08/16/21 Range/Units 09:39 Unknown Unknown WBC (4.5-11.0) K/mm3 RBC (3.65-5.03) M/mm3 Hgb (10.1-14.3) gm/dl Hct (30.3-42.9) % MCV (79-97) fl MCH (28-32) pg MCHC (30-34) % RDW (13.2-15.2) % Plt Count (140-440) K/mm3 Lymph % (Auto) (13.4-35.0) % [place] % (Auto) (0.0-7.3) % Eos % (Auto) (0.0-4.3) % Baso % (Auto) (0.0-1.8) % Lymph # (Auto) (1.2-5.4) K/mm3 [place] # (Auto) (0.0-0.8) K/mm3 Eos # (Auto) (0.0-0.4) K/mm3 Baso # (Auto) (0.0-0.1) K/mm3 Seg Neutrophils % (40.0-70.0) % Seg Neutrophils # (1.8-7.7) K/mm3 Sodium (137-145) mmol/L Potassium (3.6-5.0) mmol/L Chloride (98-107) mmol/L Carbon Dioxide (22-30) mmol/L Anion Gap mmol/L BUN (7-17) mg/dL Creatinine (0.6-1.2) mg/dL Estimated GFR ml/min BUN/Creatinine Ratio % Glucose (65-100) mg/dL Calcium (8.4-10.2) mg/dL TSH (0.270-4.200) mlU/mL Free T4 (0.76-1.46) ng/dL Urine Color Yellow (Yellow) Urine Turbidity Clear (Clear) Urine pH 6.0 (5.0-7.0) Ur Specific [place] 1.013 (1.003-1.030) Urine Protein 30 mg/dl (Negative) mg/dL Urine Glucose (UA) Neg (Negative) mg/dL Urine Ketones Tr (Negative) mg/dL Urine Blood Neg (Negative) Urine Nitrite Neg (Negative) Urine Bilirubin Neg (Negative) Urine Urobilinogen < 2.0 (<2.0) mg/dL Ur Leukocyte Esterase Neg (Negative) Urine WBC (Auto) 2.0 (0.0-6.0) /HPF Urine RBC (Auto) 4.0 (0.0-6.0) /HPF U Epithel Cells (Auto) 11.0 (0-13.0) /HPF Urine Mucus Few /HPF Urine HCG, Qual Negative (Negative) Urine Opiates Screen Negative Urine Methadone Screen Negative Ur Barbiturates Screen Negative Ur Phencyclidine Scrn Negative Ur Amphetamines Screen Negative U Benzodiazepines Scrn Positive Urine Cocaine Screen Negative U Marijuana (THC) Screen Positive Drugs of Abuse Note Disclamer Plasma/Serum Alcohol 0.06 (0-0.07) % - EKG Data -: EKG Interpreted by Me - EKG Data 08/16/21 15:01 EKG time 9: 15 rate 74 sinus rhythm normal sinus rhythm impression normal EKG - Medical Decision Making Chief medical diagnosis: Anxiety Differential medical diagnosis alcohol intoxication, acute stress disorder I will reevaluate patient I will get blood work in 1 patient becomes more alert and oriented I will discharge the patient. Critical care attestation.: If time is entered above; I have spent that time in minutes in the direct care of this critically ill patient, excluding procedure time. ED Disposition Clinical Impression: Anxiety Disposition: 01 HOME / SELF CARE / HOMELESS Is pt being admited?: No Does the pt Need Aspirin: No Condition: Stable Instructions: Supporting Someone With Anxiety Referrals: PRIMARY CARE, [Primary Care Provider] - 3-5 Days JIA RESENDIZ MD [Staff Physician] - 3-5 Days
[2021-08-16 07:53] LABS: Blood Urea Nitrogen 11 mg/dL (7-17); Calcium 9.4 mg/dL (8.4-10.2); Hemolysis Index 6
[2021-08-16 07:58] LABS: Basophils % (Auto) 0.4 % (0.0-1.8); Eosinophils % (Auto) 0.2 % (0.0-4.3); Hematocrit 38.1 % (30.3-42.9); Hemoglobin 12.7 gm/dl (10.1-14.3); Lymphocytes # (Auto) 1.7 K/mm3 (1.2-5.4); Lymphocytes % (Auto) 18.8 % (13.4-35.0); Mean Corpuscular HGB Conc 33 % (30-34); Mean Corpuscular Volume 85 fl (79-97); Monocytes # (Auto) 0.8 K/mm3 (0.0-0.8); Monocytes % (Auto) 8.8 % (0.0-7.3); Platelet Count 198 K/mm3 (140-440); Red Blood Count 4.47 M/mm3 (3.65-5.03); Red Cell Distribution Width 14.8 % (13.2-15.2)
[2021-08-16 07:59] LABS: BUN/Creatinine Ratio 22
[2021-08-16 09:22] LABS: Bilirubin,Urine NEG (Negative); Blood,Urine NEG (Negative); Color,Urine Yellow (Yellow); Urobilinogen,Urine < 2.0 mg/dL (<2.0)
[2021-08-16 09:26] LABS: Mucus,Urine FEW /HPF
[2021-08-16 09:29] LABS: HCG Qualitative,Urine Negative (Negative)
[2021-08-16 09:31] LABS: Amphetamine Screen,Urine Negative; Cocaine Screen,Urine Negative; Methadone Screen,Urine Negative; Opiate Screen,Urine Negative
[2021-08-16 09:56] LABS: Benzodiazepines Screen,Urine Positive; Cannabinoid Screen,Urine Positive
[2021-08-16] MEDS ORDERED: SODIUM CHLORIDE 0.9% 1000 ML 1,000 ML IV ONE (10:15)
[2021-08-16 10:56] LABS: Free T4 (Free Thyroxine) 1.33 ng/dL (0.76-1.46)
[2021-08-16 12:19] VITALS: BP 111/72
--- NOTE | 2021-08-16 15:57 | Consultation ---
History of Present Illness - Reason for Consult Consult date: 08/16/21 Reason for consult: MHE - History of Present Psychiatric Illness Admission Note Patient seen today in the ER. Patient states that she was brought in by EMS , because she had a"couple of drinks". Patient denies any SI/HI at this time, she also denies any drug use at this time. Patient is alert and oriented as at the time of this interview and cooperative. [facility] will sign off at this time. HPI PAST PSYCHIATRIC HISTORY: Diagnoses: ETOH Suicide attempts or Self-harm behavior: No Prior psychiatric hospitalizationsNo Substance Abuse history: Marijuana Previous psychiatric medications tried: No Outpatient treatment: PAST MEDICAL HISTORY: Family Psychiatric History None reported or documented SOCIAL HISTORY Marital Status: Single Living Arrangements: Employment Status: Access to guns/weapons: Education: History of Abuse: Legal History: REVIEW OF SYSTEMS Constitutional: Negative for weight loss ENT: Negative for stridor Respiratory: Negative for cough or hemoptysis All other systems reviewed and are negative Diagnoses: ETOH Treatment Plan Psych will sign off at this time The patient agreed on the treatment plan, understood the risk, benefit, alternative treatment, potential consequence of no treatment, and gave informed consent. Medications and Allergies Allergies Allergy/AdvReac Type Severity Reaction Status Date / Time No Known Allergies Allergy Unverified 06/06/19 16:53 Home Medications Medication Instructions Recorded Confirmed Last Taken Type Dexchlorpheniram/Phenylephrine 1 each PO Q6H #20 tab 04/17/17 06/07/19 Unknown Rx [Rymed Tablet] Ibuprofen 400 mg PO Q8H #15 tablet 04/17/17 06/07/19 Unknown Rx Acetaminophen [Tylenol] 650 mg PO Q8HR PRN #25 capsule 11/10/18 06/07/19 Unknown Rx HYDROcodone/APAP 5-325 [[place] 1 each PO Q6HR PRN #20 tablet 06/08/19 Unknown Rx 5/325] Ibuprofen [Motrin] 800 mg PO Q8HR PRN #60 tablet 06/08/19 Unknown Rx Mental Status Exam - Vital signs Last Vital Signs Temp 97.8 F 08/16/21 06:42 Pulse 76 08/16/21 12:15 Resp 21 08/16/21 12:15 BP 111/72 08/16/21 12:15 Pulse Ox 100 08/16/21 12:15 Results Result Diagrams: 08/16/21 07:07 08/16/21 07:07 Abnormal lab results 08/16/21 08/16/21 Range/Units 07:07 07:07 [place] % (Auto) 8.8 H (0.0-7.3) % Seg Neutrophils % 71.8 H (40.0-70.0) % Creatinine 0.5 L (0.6-1.2) mg/dL All other labs normal.
--- NOTE | 2021-08-17 08:59 | Electrocardiograph Report ---
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
== END 2021-08-16 16:39 | disposition home or self-care (01) ==
LOC: ED 05:32
DX: F41.9 Anxiety disorder, unspecified (principal); F17.290 Nicotine dependence, other tobacco product, uncomplicated
CPT/HCPCS: 36415; 80048; 80307; 80320; 81001; 81025; 84439; 84443; 85025; 93005; 96360; 99284; G0480